=== PATIENT | male | born 1950 | race Caucasian/White ===

== ENCOUNTER → 2019-05-07 08:39 | Outpatient (BNVA) | payer OTHER, SELFPAY | PROVIDERS: Family Provider Internal Medicine; PCP Internal Medicine; Referring Provider Licensed Practical Nurse; Visit Provider Psychiatry & Neurology Neurology | DX: M51.17 Intervertebral disc disorders with radiculopathy, lumbosacral region (principal); G62.9 Polyneuropathy, unspecified; M79.604 Pain in right leg; M79.605 Pain in left leg | CPT/HCPCS: 95886; 95909 ==

== ENCOUNTER 2019-05-19 14:23 | Outpatient (CLI) | payer OTHER, SELFPAY ==
--- NOTE | 2019-05-19 14:32 | USCV_ITS ---
Porter Roth Age: 69 Gender: M : 1950 Exam Date: 05/19/2019 14:46 Ordering Phys: Joaquim Gregg XX Technologist: Morelia Silva Exam Location: [facility] [place] Indication: L CAROTID BRUIT Risk Factors: Previous Vascular Surgery: Right Brachial BP: / Left Brachial BP: / Right Left Velocity (cm/s) Spectral Plaque Velocity (cm/s) Spectral Plaque Syst/Diast Broadening Syst/Diast Broadening 98.10/ 27.60 Prox CCA 99.20 / 23.20 91.50/ 20.90 Mid CCA 105.80/ 25.40 97.00/ 24.30 Distal CCA 108.10/ 27.60 83.80/ 37.50 Prox ICA 70.60 / 25.40 94.80/ 33.10 Mid ICA 87.10 / 27.60 101.40/32.00 Distal ICA 79.40 / 36.40 120.20 ECA 122.40 1.11 ICA/CCA 0.82 Antegrade Vertebral Bi- directiona l 78.30/ 28.70 cm/s 12.00/ 1.00 cm/s Tri Subclavian Tri FINDINGS Moderate heterogeneous plaques at the bifurcation and proximal internal carotid arteries. Intimal thickening and minimal plaque in the common carotid arteries bilaterally. Antegrade flow in the vertebral artery on the right side. Bidirectional flow in the vertebral artery on the left side. Normal Doppler velocities in the external carotid arteries bilaterally CONCLUSIONS Moderate heterogeneous plaques at the bifurcation and proximal internal carotid arterieswith velocity elevation consistent with 16-49% stenosis. Bidirectional blood flow in the left vertebral artery, may assist high-grade stenosis in the proximal subclavian artery No previous studies are available for comparison. Dr Rand Weinberg MD [facility] (Electronically Signed) Final Date: 20 May 2019 20:32 S
== END 2019-05-19 14:24 | disposition home or self-care (01) ==
LOC: RAD 14:26
PROVIDERS: Family Provider Internal Medicine; PCP Internal Medicine; Visit Provider Internal Medicine
DX: I65.23 Occlusion and stenosis of bilateral carotid arteries (principal); R09.89 Other specified symptoms and signs involving the circulatory and respiratory systems
CPT/HCPCS: 93880

== ENCOUNTER 2022-07-31 07:11 | Emergency (ER) | payer OTHER, SELFPAY ==
[2022-07-31] VITALS (11 sets, daily range): BP systolic 124–164; BP diastolic 69–92; PULSE 50–65; TEMP 36.4; O2SAT 93–99; BMI 27.3
--- NOTE | 2022-07-31 07:19 | XRR_ITS ---
PROCEDURE INFORMATION: Exam: XR Chest Exam date and time: 07/31/2022 8:03 AM Age: 72 years old Clinical indication: Cough and dyspnea; Additional info: Dyspnea/cough TECHNIQUE: Imaging protocol: Radiologic exam of the chest. Views: 1 view. COMPARISON: CT cervical spin wo con* [id number] 01/15/2019 8:04 AM FINDINGS: Lungs: Normal lung volumes. No interstitial or air space opacities seen. Pleural spaces: No pleural effusion. No pneumothorax. Heart/Mediastinum: Normal heart size. There is a mildly tortuous thoracic aorta. Midline trachea. Bones/joints: No acute osseous abnormalities seen. XR/XR chest 1V portable [id number] IMPRESSION: No acute cardiopulmonary disease seen on the chest radiograph.
--- NOTE | 2022-07-31 07:41 | W.ED.WEAKNES ---
HPI - Weakness General: Chief complaint: Weakness Stated complaint: Weakness, Dizziness, No appetite Time Seen by Provider: 07/31/22 07:17 Source: patient Mode of arrival: ambulatory History of Present Illness: 72-year-old male presents emergency room complaining of generalized weakness. [facility] he had several tick bites he never really had target lesions or rash develop from the he showed me several areas where he is there are small excoriated bite sites with no surrounding erythema he was given hydrocodone and started on doxycycline. He states he has progressively worsened he initially had some diarrhea with his onset of symptoms he still has a little bit of low-grade fever up to 99.5. He has a nonproductive cough myalgias and headache as well as generalized weakness. MD Complaint: generalized weakness Onset (ago): minute(s) Duration: constant Location: generalized Severity: moderate Quality: aching Relieving factors: none Exacerbating factors: none Associated symptoms: Denies chest pain, chills, confusion, melena, decreased appetite, diaphoresis, dysuria, easy bruising, fever(s), headache(s), myalgias, nausea, rash, short of breath, syncope or vomiting Review of Systems Const: Denies: fever(s), chills or diaphoresis Card: Reports: lightheadedness; Denies: chest pain, palpitations, irregular heart rhythm, edema, swelling of feet/ankles or syncope GI: Denies: nausea, vomiting or melena : Denies: dysuria, urinary frequency or urinary urgency Neuro: Denies: headache(s) or confusion Javon/Lymph: Denies: easy bruising [facility] PFSH: Medical History Lumbar scoliosis Lumbar stenosis with neurogenic claudication Polyneuropathy, peripheral sensorimotor axonal Spondylolisthesis of lumbar region Surgical History H/O hernia repair S/P cervical spinal fusion 1989 [facility] Family History Father CAD (coronary artery disease) Sister CAD (coronary artery disease) Brother CAD (coronary artery disease) Social History (Reviewed 05/16/23 @ 07:43 by ROGER Paredes Smoking and tobacco status: current every day smoker Alcohol intake: never Substance/Drug Use: never Lives independently: Yes Marital status: Current occupational status: retired Physical Exam Const: GENERAL APPEARANCE: cooperative and comfortable ORIENTATION/CONSCIOUSNESS: Yes awake, Yes oriented to person, Yes oriented to place and Yes oriented to time HENMT: COMMON NORMALS: normocephalic, atraumatic and hearing grossly normal bilaterally HEAD & SCALP: normocephalic and atraumatic Resp: COMMON NORMALS: normal respiratory effort, No retractions, No use of accessory muscles and clear to auscultation bilaterally AUSCULTATION: clear to auscultation bilaterally Cardio: COMMON NORMALS: regular rate, regular rhythm and No murmurs present (Cardio) RATE: regular rate RHYTHM: regular rhythm GI: COMMON NORMALS: Soft to palpation and No hepatosplenomegaly present AUSCULTATION: Yes normoactive bowel sounds PALPATION: Yes Soft to palpation, No Tenderness to palpation present (GI), No Guarding due to palpation present (GI) and Yes No hepatosplenomegaly present Extremity: COMMON NORMALS: normal to inspection, capillary refill normal, no clubbing, cyanosis or edema, no calf tenderness and no pedal edema Neuro: SENSORIUM/ORIENTATION: Yes oriented to person, Yes oriented to place and Yes oriented to time Skin: COMMON NORMALS: no rashes or lesions noted GENERAL SKIN EXAM: no rashes or lesions noted Course Vital Signs: Vital signs: Vital Signs Temperature 97.5 F L 07/31/22 07:18 Pulse Rate 65 07/31/22 12:26 Blood Pressure 138/87 07/31/22 12:26 Pulse Oximetry 99 07/31/22 11:32 Oxygen Delivery Me thod Room Air 07/31/22 11:32 MDM - Weakness Medical Decision Making Labs and imaging reviewed no acute finding patient does feel better after fluids able to ambulate without difficulty dizziness has resolved. Will discharge home with meclizine continue the doxycycline follow-up with primary care doctor return if worsens Medical Records I reviewed the patient's medical records. Lab Data I reviewed the patient's lab results. 07/31/22 07:46 07/31/22 07:46 Radiology Impressions Chest X-Ray 07/31/22 07:19 IMPRESSION: No acute cardiopulmonary disease seen on the chest radiograph. Laboratory Results WBC 4.9 10^3/uL (4.0-10.0) 07/31/22 07:46 RBC 5.83 10^6/uL (4.1-5.3) H 07/31/22 07:46 Hgb 17.3 g/dL (11.7-16.6) H 07/31/22 07:46 Hct 50.6 % (42.0-52.0) 07/31/22 07:46 MCV 86.8 fl (80-94) 07/31/22 07:46 MCH 29.7 pg (28.0-34.0) 07/31/22 07:46 MCHC 34.2 g/dL (30.0-36.0) 07/31/22 07:46 RDW 13.1 % (12.1-15.1) 07/31/22 07:46 Plt Count 145 10^3/cmm (130-400) 07/31/22 07:46 MPV 10.5 fL (7.4-10.4) H 07/31/22 07:46 Neut % (Auto) 52.8 % 07/31/22 07:46 Lymph % (Auto) 39.0 % 07/31/22 07:46 Knox % (Auto) 7.6 % 07/31/22 07:46 Eos % (Auto) 0.2 % 07/31/22 07:46 Baso % (Auto) 0.2 % 07/31/22 07:46 Neut # (Auto) 2.56 10^3/uL (1.8-7.7) 07/31/22 07:46 Lymph # (Auto) 1.9 10^3/uL (0.8-4.8) 07/31/22 07:46 Knox # (Auto) 0.4 10^3/uL (0.2-0.9) 07/31/22 07:46 Eos # (Auto) 0.0 10^3/uL (0.0-0.8) 07/31/22 07:46 Baso # (Auto) 0.0 10^3/uL (0.0-0.1) 07/31/22 07:46 Nucleated RBC % (auto) 0 % 07/31/22 07:46 Nucleated RBCs # 0.0 /100WBC 07/31/22 07:46 Sodium 135 mmol/L (136-145) L 07/31/22 07:46 Potassium 4.2 mmol/L (3.5-5.1) 07/31/22 07:46 Chloride 98 mmol/L (98-107) 07/31/22 07:46 Carbon Dioxide 23 mmol/L (22-29) 07/31/22 07:46 Anion Gap 18.2 (5-19) 07/31/22 07:46 BUN 11 mg/dL (8-23) 07/31/22 07:46 Creatinine 0.7 mg/dL (0.7-1.2) 07/31/22 07:46 GFR Calculation Not Reportable 07/31/22 07:46 Glucose 114 mg/dL (65-115) 07/31/22 07:46 Calculated Osmolality 280 mOsm/kg (285-295) L 07/31/22 07:46 Calcium 9.2 mg/dL (8.5-10.5) 07/31/22 07:46 Total Bilirubin 0.7 mg/dL (0.15-1.2) 07/31/22 07:46 AST 29 U/L (0-40) 07/31/22 07:46 ALT 37 U/L (0-41) 07/31/22 07:46 Alkaline Phosphatase 66 U/L (40-130) 07/31/22 07:46 C-Reactive Protein 3.0 mg/L (0.0-4.9) 07/31/22 07:46 Total Protein 6.6 g/dL (6.6-8.7) 07/31/22 07:46 Albumin 4.2 g/dL (3.5-5.2) 07/31/22 07:46 Globulin 2.4 g/dL (1.3-4.6) 07/31/22 07:46 Urine Color Yellow (Yellow) 07/31/22 08:48 Urine Appearance Clear (CLEAR) 07/31/22 08:48 Urine pH 5 (5-7) 07/31/22 08:48 Ur Specific [place] 1.020 (1.005-1.030) 07/31/22 08:48 Urine Protein Neg (Negative) 07/31/22 08:48 Urine Glucose (UA) Norm (Normal) 07/31/22 08:48 Urine Ketones 1+ (Negative) H 07/31/22 08:48 Urine Blood Neg (Negative) 07/31/22 08:48 Urine Nitrate Negative (Negative) 07/31/22 08:48 Urine Bilirubin Neg (Negative) 07/31/22 08:48 Urine Urobilinogen Norm mg/dL (Negative) 07/31/22 08:48 Ur Leukocyte Esterase Negative (Negative) 07/31/22 08:48 Coronavirus 229E (PCR) Not detected (NOT DETECT) 07/31/22 07:45 SARS-CoV-2 (PCR) Not detected (NOT DETECT) 07/31/22 07:45 Discharge Plan Discharge Patient Disposition: Home Clinical Impression: Weakness, Labyrinthitis Condition: Stable Prescriptions: New meclizine 25 mg tablet 25 mg PO QID PRN (Reason: dizziness) Qty: 20 0RF No Action [place] 7.5-325 mg Tablet 1 tab PO TID PRN (Reason: Pain) doxycycline hyclate 100 mg Tablet 100 mg PO BID Discharge Orders: Discharge ED (Routine); Ordered 07/31/22 Ordered By: Pilo Beckett Referrals: Leny Malin MD [Primary Care Provider] - Discharge Diet: Usual diet Discharge Activity: Increase activity as tolerated Patient Instructions: Opioid Safety, Pain Management Activity Restrictions/Additional Instructions: You are seen today for weakness and dizziness. Your laboratory studies were unremarkable. Your exam did not show any signs of acute CVA at this time. We will give meclizine to use as needed. Continue previously prescribed doxycycline until completed. Follow-up with your primary care doctor return to emergency room for worsening problems. Coding Level of Care Code ED Accounting Machine Servicer for Dean Rachel
[2022-07-31 08:06] LABS: Basophils % 0.2 %; Eosinophils % 0.2 %; Hematocrit 50.6 % (42.0-52.0); Hemoglobin 17.3 g/dL (11.7-16.6); Lymphocytes # 1.9 10^3/uL (0.8-4.8); Mean Corpuscular HGB Conc 34.2 g/dL (30.0-36.0); Mean Corpuscular Hemoglobin 29.7 pg (28.0-34.0); Mean Corpuscular Volume 86.8 fl (80-94); Mean Platelet Volume 10.5 fL (7.4-10.4); Monocytes # 0.4 10^3/uL (0.2-0.9); Monocytes % 7.6 %; Neutrophils # 2.56 10^3/uL (1.8-7.7); Neutrophils % 52.8 %; Nucleated Red Blood Cells % 0 %; Platelet Count 145 10^3/cmm (130-400); Red Blood Count 5.83 10^6/uL (4.1-5.3); Red Cell Distribution Width 13.1 % (12.1-15.1); White Blood Count 4.9 10^3/uL (4.0-10.0)
[2022-07-31 08:28] LABS: Alanine Aminotransferase 37 U/L (0-41); Albumin Level 4.2 g/dL (3.5-5.2); Alkaline Phosphatase 66 U/L (40-130); Anion Gap 18.2 (5-19); Aspartate Amino Transferase 29 U/L (0-40); Blood Urea Nitrogen 11 mg/dL (8-23); Calcium 9.2 mg/dL (8.5-10.5); Carbon Dioxide 23 mmol/L (22-29); Chloride 98 mmol/L (98-107); Globulin 2.4 g/dL (1.3-4.6); Glucose 114 mg/dL (65-115); Osmolality Calculated 280 mOsm/kg (285-295); Potassium 4.2 mmol/L (3.5-5.1); Sodium 135 mmol/L (136-145); Total Bilirubin 0.7 mg/dL (0.15-1.2); Total Protein 6.6 g/dL (6.6-8.7)
[2022-07-31 08:51] LABS: Add Urine Microscopic? NO; Charge for UA Resulting for Rev
[2022-07-31 08:54] LABS: Bilirubin Urine Neg (Negative); Blood Urine Neg (Negative); Glucose Urine UA Norm (Normal); Ketones Urine 1+ (Negative); Leukocyte Esterase Urine Negative (Negative); Nitrate Urine Negative (Negative); Protein Urine Neg (Negative); Urine Appearance Clear (CLEAR); Urine Color Yellow (Yellow); Urobilinogen Urine Norm (Negative); pH Urine 5 (5-7)
[2022-07-31 09:51] LABS: Adenovirus Not Detected (NOT DETECT); Chlamydia Pneumoniae Not Detected (NOT DETECT); Coronavirus 229E,HKU1,NL63,OC4 Not Detected (NOT DETECT); Human Metapneumovirus Not Detected (NOT DETECT); Human Rhinovirus/Enterovirus Not Detected (NOT DETECT); Influenza A Not Detected (NOT DETECT); Influenza A H1 Not Detected (NOT DETECT); Influenza A H1-2009 Not Detected (NOT DETECT); Influenza A H3 Not Detected (NOT DETECT); Influenza B Not Detected (NOT DETECT); Mycoplasma Pneumoniae Not Detected (NOT DETECT); Parainfluenza Virus Type 1 Not Detected (NOT DETECT); Parainfluenza Virus Type 2 Not Detected (NOT DETECT); Parainfluenza Virus Type 3 Not Detected (NOT DETECT); Parainfluenza Virus Type 4 Not Detected (NOT DETECT); Respiratory Syncytial Virus A Not Detected (NOT DETECT); Respiratory Syncytial Virus B Not Detected (NOT DETECT); SARS-COV-2 Not Detected (NOT DETECT)
[2022-07-31] MEDS: sodium chloride 0.9% 1,000 ML 999 ML IV (10:44)
[2022-08-01 12:50] LABS: Lyme AB Screen <0.90 index
[2022-08-07 21:49] LABS: E. Chaffeensis AB IGG <1:64; E. Chaffeensis AB IGM <1:20
[2022-08-08 17:25] LABS: RMSF IGG NOT DETECTED; RMSF IGM NOT DETECTED
== END 2022-07-31 12:45 | disposition home or self-care (01) ==
PROVIDERS: Emergency Provider Family Medicine; PCP Family Medicine
DX: R53.1 Weakness (principal); H83.09 Labyrinthitis, unspecified ear; Z20.822 Contact with and (suspected) exposure to COVID-19; F17.210 Nicotine dependence, cigarettes, uncomplicated
CPT/HCPCS: 71045; 80053; 81003; 85025; 86140; 86618; 86666; 86757; 87635; 96360; 96361; 99284; J7030

== ENCOUNTER 2023-08-19 06:55 | Outpatient (CLI) | payer OTHER, SELFPAY ==
--- NOTE | 2023-08-19 | ECG_ITS ---
[facility] Test Date: 2023-08-19 Pat Name: Porter Roth Department: Room: Gender: Male [employer]: : 1950 Requested By: Leny Malin Order Number: [id number] Pramod MD: Rand Weinberg M.D. Interpretive Statements NAME OF STUDY: LEXISCAN SESTAMIBI STRESS TEST INDICATION: SOB/FATIGUE/FAMILY H/O HEART DISEASE, PROCEDURE: At the baseline, the EKG revealed normal sinus rhythm with some features of right ventricular conduction delay. The baseline heart was 62 bpm with a blood pressue of 140/75 mm of Hg Lexiscan was infused over a period of 20 seconds. A total of 0.4 milligrams of Lexiscan was infused. The stress phase was continued for a total of 5 minutes. Heart rate at the end of the stress phase was 73 bpm with a blood pressure 137/63 mm of Hg. The EKG at the peak infusion revealed no significant changes. Sestamibi was injected 20 seconds after the Lexiscan infusion. Heart rate at the end of the recovery phase was 71 bpm with a blood pressure of 131/65 mm of Hg. CONCLUSION: 1. No significant EKG changes with the LexiScan infusion 2. No LexiScan induced chest pain or cardiac arrhythmia 3. Normal blood pressure and heart rate response 4. Sestamibi/sestamibi perfusion scan pending; see separate report. Electronically Signed On 08-22-2023 9:32:55 CDT by Rand Weinberg M.D. [email or web address]
--- NOTE | 2023-08-19 07:33 | NMCV_ITS ---
NM mukesh perf SPECT r/s* [id number] Porter Roth Age: 73 Gender: M : 1950 Exam Date: 08/19/2023 07:33 Ordering Phys: Leny Malin MD Technologist: JOJO Lama Exam Location: [facility] Indications: SHORTNESS OF BREATH, FATIGUE, FAMILY HISTORY STRESS TEST Please see separate stress test report in [facility] for full findings IMAGE PROTOCOL Rest/Stress 1 Lexiscan Day Radiopharmaceutical Dose (mCi) Administration Site Administered by Rest: Tc-99m 11.0 IV JOJO Hutson Sestamibi Stress:Tc-99m 33.0 IV JOJO Hutson Sestamibi Rest: 19-Aug-2023 60 Discovery 630 Stress: 19-Aug-2023 30 Discovery 630 0.4mg Lexiscan. Images obtained in supine and prone position. SPECT RESULTS Technical Quality: Excellent Raw Data Analysis: Normal Image Corrections: No attenuation or motion correction applied Summed Stress Score: 4 Summed Rest Score: 9 Summed Difference Score: 0 PERFUSION FINDINGS Moderate area of slightly decreased tracer uptake involving the mid inferior, mid inferoseptal, apical inferior and apical septal segments. No significant reversibility was noted in these regions. FUNCTIONAL RESULTS (calculated via Gated SPECT) Stress Image LV EF (%): 68 Stress EDV (mL):102 TID: 0.9 Stress ESV (mL):33 FUNCTIONAL FINDINGS: Segmental wall motion analysis revealing no gross wall motion abnormalities IMPRESSIONS 1. Myocardial perfusion imaging revealing moderate area of slightly decreased persistent tracer uptake involving the mid inferior, mid inferoseptal, apical inferior and apical septal segment suggesting myocardial scarring versus attenuation artifact 2. Normal LV ejection fraction 68% 3. LV wall motion analysis revealing no gross wall motion abnormalities. 4. Normal LV volume Low probability for coronary ischemia, based on the above findings Dr Rand Weinberg MD FAC (Electronically Signed) Final Date: 19 August 2023 13:55 S
[2023-08-19] MEDS: regadenoson 0.4 Mg/5 ml Syringe 0.400000000000000022 MG IVP (09:20)
[2023-08-19 09:31] VITALS: BP 134/64; PULSE 71
== END 2023-08-19 06:56 | disposition home or self-care (01) ==
LOC: CDL 06:56
PROVIDERS: PCP Family Medicine; Visit Provider Family Medicine
DX: R06.00 Dyspnea, unspecified (principal); R94.39 Abnormal result of other cardiovascular function study
CPT/HCPCS: 36415; 78452; 93017; 96374; A9500; J2785

== ENCOUNTER 2024-08-17 07:22 | Outpatient (CLI) | payer OTHER, SELFPAY ==
--- NOTE | 2024-08-17 07:39 | USR_ITS ---
PROCEDURE INFORMATION: Exam: US Duplex Upper Extremity Arteries Exam date and time: 08/17/2024 7:47 AM Age: 74 years old Clinical indication: Screening exam; Blood pressure differences; Additional info: Discrepency in blood pressures ue/left low right-normal TECHNIQUE: Imaging protocol: Real-time ultrasound scan of the arteries of the bilateral upper extremities with 2-D manriquez scale, color Doppler flow and spectral waveform analysis. Complete exam. COMPARISON: CT cervical spin wo con* [id number] 01/15/2019 8:04 AM FINDINGS: Right subclavian artery proximal: Triphasic flow with a peak systolic velocity of 127 cm/s Right subclavian artery distal: Triphasic flow with a peak systolic velocity of 73 cm/s Right axillary artery: Biphasic flow with a peak systolic velocity of 71 cm/s Right brachial artery proximal: Triphasic flow with a peak systolic velocity of 103 cm/s Right brachial artery mid: Triphasic flow with a peak systolic velocity of 109 cm/s Right brachial artery distal: Triphasic flow with a peak systolic velocity of 90 cm/s Right radial artery proximal: Triphasic flow with a peak systolic velocity of 68 cm/s Right radial artery distal: Triphasic flow with a peak systolic velocity of 74 cm/s Right ulnar artery proximal: Triphasic flow with a peak systolic velocity of 75 cm/s Right ulnar artery distal: Triphasic flow with a peak systolic velocity of 65 cm/s Right brachial pressure 153/83. Right ulnar pressure 142. Right radial pressure 137. The right NEGRA is 0.93. Left subclavian artery proximal: Monophasic flow with a peak systolic velocity of 45 cm/s Left subclavian artery distal: Biphasic flow with a peak systolic velocity of 31 cm/s Left axillary artery: Monophasic flow with a peak systolic velocity of 35 cm/s Left brachial artery proximal: Monophasic flow with a peak systolic velocity of 38 cm/s Left brachial artery mid: Monophasic flow with a peak systolic velocity of 52 cm/s Left brachial artery distal: Monophasic flow with a peak systolic velocity of 44 cm/s Left radial artery proximal: Monophasic flow with a peak systolic velocity of 30 cm/s Left radial artery distal: Monophasic flow with a peak systolic velocity of 41 cm/s Left ulnar artery proximal: Monophasic flow with a peak systolic velocity of 7 cm/s Left ulnar artery distal: Monophasic flow with a peak systolic velocity of 10 cm/s Left brachial pressure 111/77. Left radial pressure 105. Left ulnar pressure 110. The left ABIs 0.72. US/[place] [id number] IMPRESSION: Findings suggestive of a stenosis involving the proximal left subclavian artery.
== END 2024-08-17 07:23 | disposition home or self-care (01) ==
PROVIDERS: PCP Family Medicine; Visit Provider Family Medicine
DX: I73.9 Peripheral vascular disease, unspecified (principal); R93.89 Abnormal findings on diagnostic imaging of other specified body structures
CPT/HCPCS: 93930

== ENCOUNTER 2024-09-22 11:38 | Outpatient (CLI) | payer OTHER, SELFPAY ==
--- NOTE | 2024-09-22 11:45 | USCV_ITS ---
Porter Roth Age: 74 Gender: M : 1950 Exam Date: 09/22/2024 12:36 Ordering Phys: Leny Malin MD Technologist: ZO Exam Location: [facility] [place] Indication: AV F/U BP: 120 / 80 HR: 57 Rhythm: Sinus Technical Quality: Adequate MEASUREMENTS (Male / Female) Normal Values 2D ECHO LV Diastolic Diameter PLAX 4.6 cm 4.2 - 5.9 / 3.9 - 5.3 cm IVS Diastolic Thickness 0.8 cm 0.6 - 1.0 / 0.6 - 0.9 cm IVS Systolic Thickness 1.5 cm LVPW Diastolic Thickness 1.0 cm 0.6 - 1.0 / 0.6 - 0.9 cm LVPW Systolic Thickness 1.6 cm LVOT Diameter 2.0 cm LV Ejection Fraction 2D Teich 51.3 % LV Ejection Fraction MOD 4C 58.7 % LV Ejection Fraction MOD 2C 62.2 % LV Ejection Fraction 2C AL 62.2 % LA Diameter 3.2 cm RA Systolic Volume 4C AL 36.2 ml RA Systolic Volume 4C MOD 33.1 ml LA Sys Volume AL 33.4 cm cubed LA Sys Volume Index AL 16.6 cm cubed/m squared Aorta at Sinotubular Diameter 3.1 cm IVC Diameter 1.9 cm M-MODE LA Ao Ratio MM 1.1 AV Cusp Separation MM 1.5 cm DOPPLER AV Peak Velocity 118.0 cm/s LVOT Peak Velocity 98.0 cm/s AV Area Cont Eq vti 2.3 cm squared AV Area Cont Eq pk 2.7 cm squared MV Peak Velocity 75.0 cm/s MV Area PHT 2.8 cm squared Mitral E to A Ratio 0.9 TR Peak Velocity 95.0 cm/s TR Peak Gradient 3.6 mmHg TV Peak E Velocity 59.0 cm/s PV Peak Velocity 85.0 cm/s FINDINGS Left Ventricle Normal left ventricular size and systolic function, EF 62%.. Mild left ventricular hypertrophy. No regional wall motion abnormalities. Grade I/IV diastolic dysfunction (abnormal relaxation filling pattern), normal to mildly elevated filling pressures. Right Ventricle The right ventricle is normal in size and function. Right Atrium The right atrium is normal in size. Left Atrium The left atrium is normal in size. Mitral Valve Mild mitral valve regurgitation. Aortic Valve Thickened aortic valve. Tricuspid Valve No gross abnormalities noted Pulmonic Valve No gross abnormalities noted Pericardium Normal pericardium without effusion. Aorta Normal aortic annulus size. IVC Normal inferior vena cava. CONCLUSIONS Normal left ventricular size and systolic function, EF 62%.. Mild left ventricular hypertrophy. No regional wall motion abnormalities. Grade I/IV diastolic dysfunction (abnormal relaxation filling pattern), normal to mildly elevated filling pressures. Mild mitral valve regurgitation. Thickened aortic valve. There is no pericardial effusion. There are no intracardiac masses. Technically difficult study because of the poor ultrasonic window. Dr Rand Weinberg MD [facility] (Electronically Signed) Final Date: 25 September 2024 16:23 S
== END 2024-09-22 11:39 | disposition home or self-care (01) ==
LOC: RAD 11:38
PROVIDERS: PCP Family Medicine; Visit Provider Family Medicine
DX: Z01.89 Encounter for other specified special examinations (principal); R93.1 Abnormal findings on diagnostic imaging of heart and coronary circulation; I51.7 Cardiomegaly; I34.0 Nonrheumatic mitral (valve) insufficiency; I35.8 Other nonrheumatic aortic valve disorders
CPT/HCPCS: 93306